=== PATIENT | female | born 1980 | race Caucasian/White ===

== ENCOUNTER 2020-07-09 14:59 | Emergency (ER) | payer OTHER ==
[~2020-07-09] VITALS: Ht 165.1 cm; Wt 74.5 kg
[2020-07-09 15:38] LABS: BASOPHILS % (AUTO) 1 % (0-1); EOSINOPHILS % (AUTO) 5 % (1-7); LYMPHOCYTES % (AUTO) 29 % (22-44); MD NO; MEAN CORPUSCULAR HEMOGLOBIN 30.7 pg (27.0-34.8); MEAN CORPUSCULAR HGB CONC 34.4 g/dL (32.4-35.8); MEAN PLATELET VOLUME 9.7 fL (7.4-10.4); MONOCYTES % (AUTO) 5 % (2-9); NEUTROPHILS % (AUTO) 61 % (42-75); PLATELET COUNT 219 x10^3/uL (130-400); RED BLOOD COUNT 5.32 x10^6/uL (3.82-5.3); RED CELL DISTRIBUTION WIDTH 13.1 % (9.6-15.2)
[2020-07-09 15:54] LABS: MICROSCOPIC NOT IND
[2020-07-09 16:01] LABS: ANION GAP 5 mmol/L (5-15); CALCIUM 8.9 mg/dL (8.5-10.1); CHLORIDE 107 mmol/L (98-107); CREATININE 1.09 mg/dL (0.55-1.02)
[2020-07-09 16:02] LABS: ALANINE AMINOTRANSFERASE 20 U/L (12-78); ALBUMIN 3.8 g/dL (3.4-5.0); ALKALINE PHOSPHATASE 108 U/L (45-117); BILIRUBIN,TOTAL 0.2 mg/dL (0.2-1.0); TOTAL PROTEIN 7.8 g/dL (6.4-8.2)
[2020-07-09] MEDS ORDERED: SODIUM CHLORIDE FLUSH 10ML SYR IVF ONE (16:30)
[2020-07-09] MEDS ORDERED: MORPHINE SULFATE 4 MG/ML, 1ML IVPush PRN (16:30)
[2020-07-09] MEDS ORDERED: ONDANSETRON 2MG/ML, 2ML IVPush ONE (16:30)
[2020-07-09] MEDS ORDERED: ONDANSETRON 2MG/ML, 2ML ONE (16:42)
[2020-07-09] MEDS ORDERED: MORPHINE SULFATE 4 MG/ML, 1ML ONE (16:42)
[2020-07-09] MEDS ORDERED: OMNIPAQUE 350 MG/ML, 100ML BOTTLE ONE (17:05)
[2020-07-09 17:24] VITALS: BP 146/90
== END 2020-07-09 18:21 | disposition home or self-care (01) ==
LOC: ED 18:05
DX: K52.9 Noninfective gastroenteritis and colitis, unspecified (principal); R10.84 Generalized abdominal pain; R30.0 Dysuria; R11.0 Nausea; F17.200 Nicotine dependence, unspecified, uncomplicated; Z90.49 Acquired absence of other specified parts of digestive tract
CPT/HCPCS: 36415; 74177; 80053; 81003; 83690; 84703; 85025; 96374; 96375; 99285; J2270; J2405; Q9967

== ENCOUNTER 2020-07-22 20:03 | Emergency (ER) | payer OTHER ==
[~2020-07-22] VITALS: Ht 165.1 cm; Wt 73.8 kg
[2020-07-22 21:13] VITALS: BP 134/85
--- NOTE | 2020-07-22 21:13 | NUR ---
pt to room ambulatory. changed into gown, on cr monitor. easy respirations and aeration. calm and cooperative.
== END 2020-07-22 22:06 ==
LOC: ED 22:00
DX: J06.9 Acute upper respiratory infection, unspecified (principal); R05 Cough; J02.9 Acute pharyngitis, unspecified; Z20.828 Contact with and (suspected) exposure to other viral communicable diseases; R50.9 Fever, unspecified; R19.7 Diarrhea, unspecified; R51.9 Headache, unspecified; Z90.49 Acquired absence of other specified parts of digestive tract; F17.210 Nicotine dependence, cigarettes, uncomplicated
CPT/HCPCS: 87635; 99283; 99406

== ENCOUNTER 2021-03-25 09:56 | Emergency (ER) | payer MEDICAID, OTHER ==
[~2021-03-25] VITALS: Ht 165.1 cm; Wt 72.5 kg
--- NOTE | 2021-03-25 10:25 | NUR ---
assumed care of pt. pt here for multiple c/o including cough, N/V, CP and SOB for 2+days. 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 pt states "If it's anything like the fucking flu shot it's fucking worthless" pt gagging, but no vomiting noted no family at bedside. Dr Pace at bedside for eval Iso precautions in place
[2021-03-25] MEDS ORDERED: SODIUM CHLORIDE FLUSH 10ML SYR IVF ONE (10:30)
[2021-03-25] MEDS ORDERED: FAMOTIDINE 20 MG/2 ML IVPush ONE (10:30)
[2021-03-25] MEDS ORDERED: SODIUM CHLORIDE 0.9% 1,000ML IVBOLUS ONE (10:30)
[2021-03-25] MEDS ORDERED: ONDANSETRON 2MG/ML, 2ML IVPush ONE (10:30)
--- NOTE | 2021-03-25 10:30 | NUR ---
pt has required repeated reminders to leave her mask in place. pt swearing at this RN
[2021-03-25] MEDS ORDERED: ONDANSETRON 2MG/ML, 2ML ONE (10:42)
[2021-03-25] MEDS ORDERED: FAMOTIDINE 20 MG/2 ML ONE (10:43)
[2021-03-25] MEDS ORDERED: ALBUTEROL/IPRATROPIUM 2.5MG/0.5MG, 3 ML NPPB ONE (11:00)
--- NOTE | 2021-03-25 11:06 | NUR ---
pt has been medicated per order no vomiting noted. pt spitting into emesis bag and into her mask updated on POC
[2021-03-25 11:16] LABS: BASOPHILS % (AUTO) 1 % (0-1); EOSINOPHILS % (AUTO) 7 % (1-7); LYMPHOCYTES % (AUTO) 20 % (22-44); MEAN CORPUSCULAR HEMOGLOBIN 30.3 pg (27.0-34.8); MEAN CORPUSCULAR HGB CONC 33.9 g/dL (32.4-35.8); MEAN PLATELET VOLUME 9.9 fL (7.4-10.4); MONOCYTES % (AUTO) 6 % (2-9); NEUTROPHILS % (AUTO) 67 % (42-75); PLATELET COUNT 190 x10^3/uL (130-400); RED BLOOD COUNT 5.01 x10^6/uL (3.82-5.3); RED CELL DISTRIBUTION WIDTH 12.6 % (9.6-15.2)
[2021-03-25 11:34] LABS: ALANINE AMINOTRANSFERASE 45 U/L (12-78); ALKALINE PHOSPHATASE 114 U/L (45-117); BILIRUBIN,TOTAL 0.8 mg/dL (0.2-1.0); CREATININE 0.94 mg/dL (0.55-1.02); TOTAL PROTEIN 7.5 g/dL (6.4-8.2)
[2021-03-25 11:36] LABS: ANION GAP 9 mmol/L (5-15); CHLORIDE 111 mmol/L (98-107)
[2021-03-25] MEDS ORDERED: ALBUTEROL/IPRATROPIUM 2.5MG/0.5MG, 3 ML ONE (11:43)
--- NOTE | 2021-03-25 11:50 | NUR ---
upon entering room, pt sleeping. easily arousable. asked pt is she was feeling better after medication, she states no
[2021-03-25 11:52] LABS: ALBUMIN 3.8 g/dL (3.4-5.0); CALCIUM 8.8 mg/dL (8.5-10.1)
--- NOTE | 2021-03-25 11:57 | NUR ---
breathing tx in progress
--- NOTE | 2021-03-25 12:01 | NUR ---
IV infusion has been interrupted multipple times because pt continues to bend her arm. repeated education given
--- NOTE | 2021-03-25 12:30 | NUR ---
pt given PO ice chips for PO challenge. pt continues to spit into emesis bag, but no vomiting
[2021-03-25] MEDS ORDERED: METOCLOPRAMIDE 5 MG/ML, 2ML ONE (12:48)
--- NOTE | 2021-03-25 12:50 | NUR ---
Dr. Pace has been to bedside for recheck. pt to have more nausea meds. upon enering room for evaluation, pt sleeping. eaily arousable.
[2021-03-25] MEDS ORDERED: MAALOX/HYOSCYAMINE/LIDOCAINE 45 ML BTL PO ONE (13:00)
[2021-03-25] MEDS ORDERED: METOCLOPRAMIDE 5 MG/ML, 2ML IVPush ONE (13:00)
[2021-03-25] MEDS ORDERED: PROMETHAZINE 25 MG/ML, 1ML IM ONE (13:00)
--- NOTE | 2021-03-25 13:00 | NUR ---
GI cocktail has been ordered from pharmacy. awaiting delivery
[2021-03-25] MEDS ORDERED: MAALOX/HYOSCYAMINE/LIDOCAINE 45 ML BTL ONE (13:39)
--- NOTE | 2021-03-25 14:10 | NUR ---
pt reports feeling much better pt given D/C instructions regarding F/U, Rx and s/sx indicating return. pt teaching regarding rest, increased fluids, nausea control, clear liquids and increase diet as tolerated. pt verbalized understanding and all questions answered. pt also advised not to drive after GI cocktail. pt states that her boyfriend will be picking her up pt ambulated out of department without difficulty. no apparent distress
[2021-03-25 14:31] VITALS: BP 143/60
== END 2021-03-25 14:33 | disposition home or self-care (01) ==
LOC: ED 10:17
DX: R11.2 Nausea with vomiting, unspecified (principal); R10.9 Unspecified abdominal pain; F17.200 Nicotine dependence, unspecified, uncomplicated; R94.31 Abnormal electrocardiogram [ECG] [EKG]; Z90.49 Acquired absence of other specified parts of digestive tract
CPT/HCPCS: 36415; 74022; 80053; 83690; 84703; 85025; 93005; 94640; 96361; 96374; 96375; 99285; J2405; J2765; J7030